=== PATIENT | female | born 1980 | race African-American/Black ===

== ENCOUNTER 2019-08-25 00:26 | Emergency (ER) | payer BC ==
[~2019-08-25] VITALS: Ht 170.2 cm; Wt 57.0 kg
[2019-08-25 02:35] LABS: CHLORIDE 106 mEq/L (98-107)
[2019-08-25 02:38] LABS: INR 0.9; PROTHROMBIN TIME 10.2 sec (9.6-11.0)
[2019-08-25 02:39] LABS: ETHANOL BLOOD < 10 mg/dL
[2019-08-25 02:41] LABS: BASOPHILS % 1.5 % (0.0-2.0); EOSINOPHILS % 3.7 % (0.0-5.0); HEMATOCRIT. 38.3 % (36.0-48.0); LYMPHOCYTES % 34.6 % (20.0-50.0); MEAN CORPUSCULAR HEMOGLOBIN 31.3 pg (28.0-32.0); MEAN CORPUSCULAR VOLUME 92.5 fL (81.0-99.0); MEAN PLATELET VOLUME 10.4 fl (7.4-10.4); MONOCYTES % 7.9 % (2.0-8.0); NEUTROPHILS % 52.3 % (40.0-76.0); PLATELET 200 x1000/uL (130-400); RED BLOOD CELL COUNT 4.14 mill/uL (4.2-5.4); RED CELL DISTRIBUTION WIDTH 13.1 % (11.6-14.6)
[2019-08-25 03:49] LABS: *AMPHETAMINES SCREEN URINE NEGATIVE (NEGATIVE); *BARBITURATES SCREEN URINE NEGATIVE (NEGATIVE); *BENZODIAZEPINES SCREEN URINE NEGATIVE (NEGATIVE); *COCAINE SCREEN URINE NEGATIVE (NEGATIVE)
[2019-08-25 03:50] LABS: CANNABINOID URINE SCREEN NEGATIVE (NEGATIVE); METHADONE URINE SCREEN NEGATIVE (NEGATIVE); OPIATES URINE SCREEN NEGATIVE (NEGATIVE); PHENCYCLIDINE URINE SCREEN NEGATIVE (NEGATIVE)
[2019-08-25 05:30] VITALS: BP 112/61
== END 2019-08-25 05:58 | disposition home or self-care (01) ==
LOC: ER 00:26
DX: R00.2 Palpitations (principal); R04.0 Epistaxis; R07.89 Other chest pain; R06.02 Shortness of breath; R20.0 Anesthesia of skin; G43.909 Migraine, unspecified, not intractable, without status migrainosus
CPT/HCPCS: 36415; 71045; 80053; 80305; 80320; 81025; 84484; 85025; 93005; 99285; G0480